=== PATIENT | male | born 1935 | race Caucasian/White ===

== ENCOUNTER 2017-01-11 01:57 | Inpatient (IN) | payer MEDICARE, OTHER ==
[~2017-01-11] VITALS: Ht 177.8 cm; Wt 81.6 kg
[~2017-01-11 01:57] MED LIST: ACET325T53 PO; ACID1TAB14 PO; ALLO100T PO; ASPI81TA31 PO; BENZ7GEL6 MM; BISA10SU12 RC; CALC1CAP21 PO; CYAN10009 PO; DICL100G3 TP; DIVA125T2 PO; DOCU-25 PO; FAMO20TA8 PO; FLUT9.9S EA NOSTRIL; FOLI0.8T2 PO; FOLI1TAB16 PO; FURO-152 PO; HYDR-3326 PO; LACT10SO68 PO; LOVA40TA2 PO; OLOP2.5D EACHEYE; OXYB5TAB11 PO; QUET25TA PO; SENN8.6T6 PO; SULF1TAB48 PO; TAMS-3 PO; TRAZ-144 PO
--- NOTE | 2017-01-11 02:02 | NUR ---
PT BIB BY [facility], PT COMING IN FROM [facility] C/O 1900 C/O LEFT HIP PAIN, PT IS ALERT, ORIENTED X 4, NO RESP DISTRESS NOTED OR REPORTED UPON ASSESSMENT... MD AT BEDSIDE..
[2017-01-11] MEDS ORDERED: MORPHINE SULFATE 2 MG/1 ML DISP.SYRIN IV ONE (02:30)
[2017-01-11] MEDS ORDERED: ONDANSETRON 4 MG/2 ML VIAL IV ONE (02:30)
[2017-01-11] MEDS ORDERED: MICO29.5 TP (02:32)
[2017-01-11] MEDS ORDERED: ACID1TAB14 PO (02:32)
[2017-01-11] MEDS ORDERED: TRAM50TA2 PO (02:32)
[2017-01-11] MEDS ORDERED: CALC-1030 PO (02:32)
[2017-01-11] MEDS ORDERED: ACET-2605 PO (02:32)
[2017-01-11] MEDS ORDERED: MORPHINE SULFATE 4 MG/1 ML DISP.SYRIN ONE ×2 (02:54→05:38)
[2017-01-11] MEDS ORDERED: ONDANSETRON 4 MG/2 ML VIAL ONE ×2 (02:54→05:38)
[2017-01-11 02:59] LABS: BASOPHILS % (AUTO) 0.2 % (0.0-2.0); EOSINOPHILS # (AUTO) 0.1 K/uL (0.0-0.7); EOSINOPHILS % (AUTO) 1.3 % (0.0-7.0); HEMATOCRIT 31.8 % (40-50); HEMOGLOBIN 10.3 G/DL (14.0-18.0); LYMPHOCYTES # (AUTO) 2.2 K/UL (0.8-4.8); LYMPHOCYTES % (AUTO) 24.1 % (20.5-51.5); MEAN CORPUSCULAR HEMOGLOBIN 30.2 UUG (27.0-31.0); MEAN CORPUSCULAR HGB CONC 32 g/dL (32.0-37.0); MEAN CORPUSCULAR VOLUME 93.5 FL (82.0-92.0); MONOCYTES # (AUTO) 0.8 K/UL (0.1-1.30); MONOCYTES % (AUTO) 8.2 % (0.0-11.0); NEUTROPHILS # (AUTO) 6.1 K/UL (1.8-8.9); NEUTROPHILS % (AUTO) 66.2 % (38.5-71.5); PLATELET COUNT (AUTO) 159 K/UL (150-450); WHITE BLOOD COUNT (AUTO) 9.2 K/UL (4.0-11.2)
[2017-01-11 03:01] LABS: POTASSIUM 3.8 mmol/L (3.5-5.1)
[2017-01-11 04:00] VITALS: BP 131/81
[2017-01-11] MEDS ORDERED: MORPHINE SULFATE 4 MG/1 ML DISP.SYRIN IV ONE (05:30)
[2017-01-11] MEDS ORDERED: ONDANSETRON IV *ER 4 MG/2 ML VIAL IV ONE (05:30)
--- NOTE | 2017-01-11 06:15 | NUR ---
Pt. admitted to [facility] , under care of Dr. Lambert, Belongs List completed, pt is alert, oriented x 3-4, no resp distress noted or reported upon transfer assessment... pt transferred via gurney...
--- NOTE | 2017-01-11 07:10 | NUR ---
RECEIVED PATIENT FROM [employer], SAFETY CHECK, BED IN LOW POSITION, SIDE RAILS UP X2
[2017-01-11] MEDS ORDERED: ACETAMINOPHEN 325 MG TABLET PO PRN (08:45)
[2017-01-11] MEDS ORDERED: BISACODYL 10 MG SUPP.RECT RC PRN (08:45)
[2017-01-11] MEDS ORDERED: ACETAMINOPHEN ES 500 MG TABLET PO SCH (08:45)
[2017-01-11] MEDS ORDERED: FAMOTIDINE 20 MG TABLET PO SCH (09:00)
[2017-01-11] MEDS ORDERED: Medication Not On Formulary EA (Acidophilus/Bulgaricus (Floranex Tablet) 1 EACH) PO SCH (09:00)
[2017-01-11] MEDS ORDERED: LACTULOSE 20 G/30 ML LIQUID UDC PO PRN (09:15)
[2017-01-11] MEDS ORDERED: CALCIUM CARB/VITAMIN D 600-400 MG TABLET PO SCH (09:15)
[2017-01-11] MEDS ORDERED: ONDANSETRON 4 MG/2 ML VIAL IV PRN (10:15)
[2017-01-11] MEDS ORDERED: NORMAL SALINE FLUSH 10 ML DISP.SYRIN IV PRN (10:15)
[2017-01-11] MEDS: FOLIC ACID 1 MG TABLET PO SCH (10:48)
[2017-01-11] MEDS: ASPIRIN 81 MG TAB.CHEW PO SCH (10:49)
[2017-01-11] MEDS: OXYBUTYNIN CHLORIDE 5 MG TABLET PO SCH ×2 (10:49→16:37)
[2017-01-11] MEDS: ACIDOPHILUS/BULGARICUS CHEW TAB PO SCH ×2 (10:49→16:37)
[2017-01-11] MEDS: FOLIC ACID/VITAMIN B COMP W-C TABLET PO SCH (10:49)
[2017-01-11] MEDS: DOCUSATE SODIUM 100 MG CAPSULE PO SCH ×2 (10:49→16:37)
[2017-01-11] MEDS: CALCIUM CARB/VITAMIN D 600-400 MG TABLET PO SCH (10:50)
[2017-01-11] MEDS: DIVALPROEX 125 MG TABLET.DR PO SCH ×3 (10:50→16:38)
[2017-01-11] MEDS: CYANOCOBALAMIN 1,000 MCG TABLET PO SCH (10:50)
[2017-01-11] MEDS: SENNOSIDES 1 TABLET PO SCH ×2 (10:50→16:37)
[2017-01-11] MEDS: ALLOPURINOL 100 MG TABLET PO SCH (10:51)
[2017-01-11] MEDS: FAMOTIDINE 20 MG TABLET PO SCH (10:52)
[2017-01-11] MEDS: ENOXAPARIN SODIUM 30 MG/0.3 ML DISP.SYRIN SUBCUT SCH (10:57)
[2017-01-11] MEDS: MORPHINE SULFATE 2 MG/1 ML DISP.SYRIN IV PRN (11:25)
[2017-01-11 12:00] VITALS: BP 111/73
[2017-01-11 12:51] LABS: *BILIRUBIN,URIN NEGATIVE (NEGATIVE); *BLOOD, URINE NEGATIVE (NEGATIVE); *CLARITY,URINE CLEAR (CLEAR); *COLOR,URINE YELLOW (YELLOW); *KETONES,URINE NEGATIVE (NEGATIVE); *PROTEIN,URINE NEGATIVE (NEGATIVE); *UROBILINOGEN,URINE 0.2 E.U./dl (NORMAL); LEUKOCYTE ESTERASE ,URINE NEGATIVE (NEGATIVE); NITRITE, URINE NEGATIVE (NEGATIVE); UGLUCOSE NEGATIVE (NEGATIVE)
[2017-01-11 13:03] LABS: BACTERIA,URINE FEW /HPF (NONE SEEN); RBC,URINE 0-3 /HPF (0-3); SQUAMOUS EPITHELIAL CELL,UR FEW /HPF (NONE SEEN); WBC,URINE 0-3 /HPF (0-3)
[2017-01-11] MEDS: NORMAL SALINE FLUSH 10 ML DISP.SYRIN IV SCH ×2 (14:14→20:42)
[2017-01-11 15:55] VITALS: BP 114/67
[2017-01-11 19:00] VITALS: BP 122/73
--- NOTE | 2017-01-11 19:00 | NUR ---
PATIENT AWAKE BUT FORGETFUL, NO SOB NO CHEST PAIN, NO COMPLAIN OF PAIN AT THIS TIME. CONT TO MONITOR.
--- NOTE | 2017-01-11 19:06 | NUR ---
GAVE REPORT TO [employer] COMMANDING OFFICER, PATIENT IS STABLE, NO EVIDENCE OF DISTRESS, PATIENT MEDICATED TWICE DURING SHIFT FOR PAIN, 1ST STEP MATTRESS ORDERED, DVT PUMPS ON, AND REPOSITIONED TO RIGHT SIDE
[2017-01-11] MEDS: TRAZODONE 50 MG TABLET PO SCH (20:22)
[2017-01-11] MEDS: QUETIAPINE FUMARATE 25 MG TABLET PO SCH (20:22)
[2017-01-11] MEDS: ATORVASTATIN 20 MG TABLET PO SCH (20:22)
[2017-01-11] MEDS: TAMSULOSIN HCL 0.4 MG CAP.SR.24H PO SCH (20:23)
[2017-01-11] MEDS ORDERED: LOVASTATIN 80 MG PO SCH (21:00)
[2017-01-12 04:00] VITALS: BP 125/71
[2017-01-12] MEDS: MORPHINE SULFATE 2 MG/1 ML DISP.SYRIN IV PRN ×3 (04:48→17:29)
--- NOTE | 2017-01-12 06:04 | NUR ---
PATIENT AWAKE WITH EPISODE OF RESIST CARE, YELLS AND SCREAMS, COMPLAIN OF LEFT HIP PAIN GIVEN PAIN MEDS WITH EFFECTIVE RESULTS, KEPT CLEAN AND DRY, SLEPT MOST OF THE NIGHT, NO S/S OF DISTRESS.
[2017-01-12] MEDS: NORMAL SALINE FLUSH 10 ML DISP.SYRIN IV SCH ×3 (06:24→22:37)
--- NOTE | 2017-01-12 08:00 | NUR ---
awake alert but forgetful at times, able to let his needs known, denies of pain at this time, 0n 02 at 2l/nc, no distress noted, served breakfast but refused, states "am not hungry" encouraged to have some, took 2 cups of apple juice, repositioned to right side with pillows for support. safety measures maintained, bed alarm on, on first step mattress
[2017-01-12] MEDS: OXYBUTYNIN CHLORIDE 5 MG TABLET PO SCH ×2 (08:26→16:21)
[2017-01-12] MEDS: ASPIRIN 81 MG TAB.CHEW PO SCH (08:26)
[2017-01-12] MEDS: DOCUSATE SODIUM 100 MG CAPSULE PO SCH ×2 (08:26→16:21)
[2017-01-12] MEDS: ACIDOPHILUS/BULGARICUS CHEW TAB PO SCH ×2 (08:26→16:21)
[2017-01-12] MEDS: FOLIC ACID/VITAMIN B COMP W-C TABLET PO SCH (08:26)
[2017-01-12] MEDS: CALCIUM CARB/VITAMIN D 600-400 MG TABLET PO SCH (08:26)
[2017-01-12] MEDS: ALLOPURINOL 100 MG TABLET PO SCH (08:26)
[2017-01-12] MEDS: FOLIC ACID 1 MG TABLET PO SCH (08:26)
[2017-01-12] MEDS: CYANOCOBALAMIN 1,000 MCG TABLET PO SCH (08:26)
[2017-01-12] MEDS: SENNOSIDES 1 TABLET PO SCH ×2 (08:27→16:21)
[2017-01-12] MEDS: FAMOTIDINE 20 MG TABLET PO SCH (08:27)
[2017-01-12] MEDS: DIVALPROEX 125 MG TABLET.DR PO SCH ×3 (08:27→16:21)
[2017-01-12] MEDS: ENOXAPARIN SODIUM 30 MG/0.3 ML DISP.SYRIN SUBCUT SCH (08:29)
--- NOTE | 2017-01-12 08:30 | NUR ---
daughter Nani called and updated on pt's condition- states had spoken to Dr Crowder
[2017-01-12 11:00] VITALS: BP 112/66
--- NOTE | 2017-01-12 11:15 | NUR ---
c/o pain left pelvic area, medicated wisdth Morphine 2mg iv as prn- repositioned and kept clean and dry
[2017-01-12 11:33] LABS: BASOPHILS % (AUTO) 0.5 % (0.0-2.0); EOSINOPHILS # (AUTO) 0.3 K/uL (0.0-0.7); EOSINOPHILS % (AUTO) 4.6 % (0.0-7.0); HEMATOCRIT 31.5 % (40-50); HEMOGLOBIN 10.3 G/DL (14.0-18.0); LYMPHOCYTES # (AUTO) 1.7 K/UL (0.8-4.8); MEAN CORPUSCULAR HEMOGLOBIN 30.4 UUG (27.0-31.0); MEAN CORPUSCULAR HGB CONC 33 g/dL (32.0-37.0); MEAN CORPUSCULAR VOLUME 92.4 FL (82.0-92.0); MONOCYTES # (AUTO) 0.4 K/UL (0.1-1.30); MONOCYTES % (AUTO) 6.5 % (0.0-11.0); NEUTROPHILS # (AUTO) 3.8 K/UL (1.8-8.9); NEUTROPHILS % (AUTO) 61.4 % (38.5-71.5); PLATELET COUNT (AUTO) 141 K/UL (150-450); WHITE BLOOD COUNT (AUTO) 6.2 K/UL (4.0-11.2)
[2017-01-12 11:51] LABS: BILIRUBIN,TOTAL 0.9 mg/dL (0.2-1.0); MAGNESIUM 1.9 mg/dL (1.8-2.4); PHOSPHOROUS 3.2 mg/dL (2.5-4.9); POTASSIUM 4.6 mmol/L (3.5-5.1); TOTAL PROTEIN, SERUM 6.9 g/dL (6.4-8.2)
[2017-01-12 11:53] LABS: CREATININE 1.8 mg/dL (0.6-1.3)
--- NOTE | 2017-01-12 14:00 | NUR ---
sister Jacqui at bedside
[2017-01-12 15:01] VITALS: BP 117/78
--- NOTE | 2017-01-12 17:30 | NUR ---
medicated for c/o pain left pelvis, incontinent of urine, washed and kept clean and dry, refused to be turned to his side, extra blanket provided. Call light within reach
--- NOTE | 2017-01-12 18:24 | NUR ---
resting, no distress noted, all needs attended and met, safety measures maintained, call lite within reach
--- NOTE | 2017-01-12 19:00 | NUR ---
PATIENT IN BED NO SOB NO CHEST PAIN, DENIES PAIN AT THIS TIME, KEPT CLEAN AND DRY, CONT TO MONITOR.
[2017-01-12 20:00] VITALS: BP 146/84
[2017-01-12] MEDS: QUETIAPINE FUMARATE 25 MG TABLET PO SCH (20:13)
[2017-01-12] MEDS: ATORVASTATIN 20 MG TABLET PO SCH (20:13)
[2017-01-12] MEDS: TRAZODONE 50 MG TABLET PO SCH (20:13)
[2017-01-12] MEDS: TAMSULOSIN HCL 0.4 MG CAP.SR.24H PO SCH (20:13)
[2017-01-13] MEDS: MORPHINE SULFATE 2 MG/1 ML DISP.SYRIN IV PRN ×4 (01:44→20:09)
[2017-01-13 04:18] VITALS: BP 141/89
--- NOTE | 2017-01-13 05:18 | NUR ---
PATIENT SLEPT MOST OF THE NIGHT NO SOB NO CHEST PAIN, GIVEN PAIN MEDS FOR PAIN AND COMFORT, NO S/S OF DISTRESS, CONT TO MONITOR,
--- NOTE | 2017-01-13 06:00 | NUR ---
PATIENT REFUSED LAB DRAW, EXPLAINED TO PATIENT THAT MD ORDER THE LAB WORKS, BUT SAID NO.
[2017-01-13] MEDS: NORMAL SALINE FLUSH 10 ML DISP.SYRIN IV SCH ×3 (06:24→21:53)
[2017-01-13] MEDS: CALCIUM CARB/VITAMIN D 600-400 MG TABLET PO SCH (08:13)
[2017-01-13] MEDS: DOCUSATE SODIUM 100 MG CAPSULE PO SCH ×2 (08:13→16:20)
[2017-01-13] MEDS: ASPIRIN 81 MG TAB.CHEW PO SCH (08:14)
[2017-01-13] MEDS: SENNOSIDES 1 TABLET PO SCH ×2 (08:14→16:19)
[2017-01-13] MEDS: FOLIC ACID/VITAMIN B COMP W-C TABLET PO SCH (08:14)
[2017-01-13] MEDS: OXYBUTYNIN CHLORIDE 5 MG TABLET PO SCH ×2 (08:14→16:20)
[2017-01-13] MEDS: ALLOPURINOL 100 MG TABLET PO SCH (08:14)
[2017-01-13] MEDS: CYANOCOBALAMIN 1,000 MCG TABLET PO SCH (08:14)
[2017-01-13] MEDS: FAMOTIDINE 20 MG TABLET PO SCH (08:14)
[2017-01-13] MEDS: ACIDOPHILUS/BULGARICUS CHEW TAB PO SCH ×2 (08:14→16:19)
[2017-01-13] MEDS: DIVALPROEX 125 MG TABLET.DR PO SCH ×3 (08:14→16:20)
[2017-01-13] MEDS: FOLIC ACID 1 MG TABLET PO SCH (08:14)
[2017-01-13] MEDS: ENOXAPARIN SODIUM 30 MG/0.3 ML DISP.SYRIN SUBCUT SCH (08:15)
[2017-01-13 11:01] VITALS: BP 109/76
--- NOTE | 2017-01-13 14:06 | NUR ---
Patient in bed resting. no s/s distress noted. denied pain at this moment. Daughter Nani at the bedside, wanted to talk to Dr. Lambert to discuss patient plan of care. Cough productive was noted during the morning, was notified about family member and developing of cough. Chest x-ray were ordered. Safety and comfort provided. Will continue monitoring.
[2017-01-13 15:16] VITALS: BP 116/84
[2017-01-13 16:48] LABS: BASOPHILS % (AUTO) 0.1 % (0.0-2.0); EOSINOPHILS # (AUTO) 0.1 K/uL (0.0-0.7); EOSINOPHILS % (AUTO) 2.1 % (0.0-7.0); HEMATOCRIT 33.1 % (40-50); HEMOGLOBIN 10.9 G/DL (14.0-18.0); LYMPHOCYTES # (AUTO) 1.2 K/UL (0.8-4.8); LYMPHOCYTES % (AUTO) 16.7 % (20.5-51.5); MEAN CORPUSCULAR HEMOGLOBIN 30.7 UUG (27.0-31.0); MEAN CORPUSCULAR HGB CONC 33 g/dL (32.0-37.0); MEAN CORPUSCULAR VOLUME 93.4 FL (82.0-92.0); MONOCYTES # (AUTO) 0.6 K/UL (0.1-1.30); MONOCYTES % (AUTO) 8.7 % (0.0-11.0); NEUTROPHILS # (AUTO) 5.2 K/UL (1.8-8.9); NEUTROPHILS % (AUTO) 72.4 % (38.5-71.5); PLATELET COUNT (AUTO) 136 K/UL (150-450); RED BLOOD CELL COUNT(AUTO) 3.55 MIL/UL (4.7-6.1); WHITE BLOOD COUNT (AUTO) 7.1 K/UL (4.0-11.2)
[2017-01-13 16:55] LABS: BILIRUBIN,TOTAL 0.9 mg/dL (0.2-1.0); CREATININE 1.7 mg/dL (0.6-1.3); MAGNESIUM 1.8 mg/dL (1.8-2.4); POTASSIUM 4.4 mmol/L (3.5-5.1)
--- NOTE | 2017-01-13 18:15 | NUR ---
Dr. Crowder called and said that he already discussed to daughter's patients about his recommendations, non weight bearing and discharge to [facility]. PT and OT was ordered for evaluation.
[2017-01-13 19:55] VITALS: BP 137/99
--- NOTE | 2017-01-13 21:00 | NUR ---
PATIENT IN BED AWAKE NO SOB NO CHEST PAIN, MEDICATED PATIENT DUE COMPLAIN OF LEFT HIP PAIN EFFECTIVE AFTER ONE HOUR, KEPT CLEAN AND DRY.
[2017-01-13] MEDS: TAMSULOSIN HCL 0.4 MG CAP.SR.24H PO SCH (21:53)
[2017-01-13] MEDS: ATORVASTATIN 20 MG TABLET PO SCH (21:53)
[2017-01-13] MEDS: QUETIAPINE FUMARATE 25 MG TABLET PO SCH (21:53)
[2017-01-13] MEDS: TRAZODONE 50 MG TABLET PO SCH (21:53)
[2017-01-14 04:23] VITALS: BP 150/93
--- NOTE | 2017-01-14 05:44 | NUR ---
PATIENT AWAKE DENIES PAIN, NO SOB NO CHEST PAIN NOTED, CONT ON PAIN MANAGEMENT, KEPT CLEAN AND DRY, KEPT HOB ELEVATED, NO S/S OF DISTRESS, SLEPT MOST OF THE NIGHT.
[2017-01-14] MEDS: NORMAL SALINE FLUSH 10 ML DISP.SYRIN IV SCH ×2 (06:18→13:28)
[2017-01-14] MEDS: FOLIC ACID 1 MG TABLET PO SCH (09:28)
[2017-01-14] MEDS: ACIDOPHILUS/BULGARICUS CHEW TAB PO SCH ×2 (09:28→17:20)
[2017-01-14] MEDS: CYANOCOBALAMIN 1,000 MCG TABLET PO SCH (09:28)
[2017-01-14] MEDS: FAMOTIDINE 20 MG TABLET PO SCH (09:29)
[2017-01-14] MEDS: FOLIC ACID/VITAMIN B COMP W-C TABLET PO SCH (09:29)
[2017-01-14] MEDS: SENNOSIDES 1 TABLET PO SCH ×2 (09:29→17:20)
[2017-01-14] MEDS: CALCIUM CARB/VITAMIN D 600-400 MG TABLET PO SCH (09:29)
[2017-01-14] MEDS: ALLOPURINOL 100 MG TABLET PO SCH (09:30)
[2017-01-14] MEDS: DIVALPROEX 125 MG TABLET.DR PO SCH ×3 (09:30→17:20)
[2017-01-14] MEDS: OXYBUTYNIN CHLORIDE 5 MG TABLET PO SCH ×2 (09:30→17:20)
[2017-01-14] MEDS: ASPIRIN 81 MG TAB.CHEW PO SCH (09:30)
[2017-01-14] MEDS: DOCUSATE SODIUM 100 MG CAPSULE PO SCH ×2 (09:30→17:20)
[2017-01-14] MEDS: ENOXAPARIN SODIUM 30 MG/0.3 ML DISP.SYRIN SUBCUT SCH (09:36)
[2017-01-14 11:06] VITALS: BP 128/87
[2017-01-14] MEDS: TRAMADOL HCL 50 MG TABLET PO PRN ×3 (12:50→18:28)
[2017-01-14 15:11] VITALS: BP 147/91
--- NOTE | 2017-01-14 18:28 | NUR ---
PATIENT IN BED RESTING DURING THE DAY. HAVE BEEN DISCHARGE TO [facility], REPORT GIVEN TO PATRICE. NO S/S OD DISTRESS NOTED. PAIN MEDICATION WAS GIVEN AFTER PT, AND BEFORE TRANSFERRING IN AMBULANCE FOR COMFORT. CALLED DR. PARDO FOR MISSING NOTES AND RECOMMENDATIONS IN ORDER TO DISCHARGE PATIENT. MAGDY DAUGHTER AWARE OF TRANSFER. SAFETY AND COMFORT PROVIDED DURING MY SHIFT. ID AND IV REMOVED. PATIENT WAS TAKEN BY AMBULANCE IN SAFE CONDITIONS.
== END 2017-01-14 18:42 | DRG 535 ==
LOC: ER 01:59 → MED 05:32
PROVIDERS: ADMIT Internal Medicine; ATTEND Internal Medicine
DX: S32.492A Other specified fracture of left acetabulum, initial encounter for closed fracture (principal); N17.0 Acute kidney failure with tubular necrosis; S32.592A Other specified fracture of left pubis, initial encounter for closed fracture; W19.XXXA Unspecified fall, initial encounter; Y92.10 Unspecified residential institution as the place of occurrence of the external cause; I25.2 Old myocardial infarction; K21.9 Gastro-esophageal reflux disease without esophagitis; M10.9 Gout, unspecified; M81.0 Age-related osteoporosis without current pathological fracture; N40.0 Benign prostatic hyperplasia without lower urinary tract symptoms; Z86.73 Personal history of transient ischemic attack (TIA), and cerebral infarction without residual deficits; I12.9 Hypertensive chronic kidney disease with stage 1 through stage 4 chronic kidney disease, or unspecified chronic kidney disease; N18.9 Chronic kidney disease, unspecified; I25.10 Atherosclerotic heart disease of native coronary artery without angina pectoris; E78.5 Hyperlipidemia, unspecified; F03.90 Unspecified dementia, unspecified severity, without behavioral disturbance, psychotic disturbance, mood disturbance, and anxiety; M54.30 Sciatica, unspecified side; D64.9 Anemia, unspecified; R13.10 Dysphagia, unspecified; F39 Unspecified mood [affective] disorder; M48.00 Spinal stenosis, site unspecified
CPT/HCPCS: 36415; 70030-TC; 71010; 72192; 73502; 80164; 83735; 84100; 85025; 85730; 93005; 97161; 97165; 97535; A4663; J1650; J2270; J2405; J3490